=== PATIENT | female | born 1975 | race Caucasian/White ===

== ENCOUNTER 2024-10-17 12:59 | Outpatient (RCR) | payer OTHER, SELFPAY | END 2024-12-21 09:39 | disposition home or self-care (01) | LOC: PT 12:59 | PROVIDERS: PCP Family Medicine; Visit Provider Podiatrist Foot & Ankle Surgery | DX: M72.2 Plantar fascial fibromatosis (principal) | CPT/HCPCS: 97026; 97110; 97140; 97161 ==